=== PATIENT | male | born 1990 | race African-American/Black ===

== ENCOUNTER 2018-08-04 10:20 | Emergency (ER) | payer SELFPAY ==
[2018-08-04] MEDS ORDERED: Dexamethasone 10 MG/ML VIAL ONE (12:23)
== END 2018-08-04 12:25 | disposition home or self-care (01) ==
LOC: ERS 10:20
DX: J02.9 Acute pharyngitis, unspecified (principal)
CPT/HCPCS: 87081; 87430; 99283; J1100

== ENCOUNTER 2019-07-24 11:37 | Emergency (ER) | payer SELFPAY ==
[2019-07-24] MEDS ORDERED: Ketorolac Tromethamine 30 MG/ML VIAL ONE (11:52)
[2019-07-24] MEDS ORDERED: Dexamethasone 10 MG/ML VIAL ONE (11:52)
== END 2019-07-24 12:35 | disposition home or self-care (01) ==
LOC: ERS 11:37
DX: M77.9 Enthesopathy, unspecified (principal); F17.210 Nicotine dependence, cigarettes, uncomplicated
CPT/HCPCS: 96372; 99283; J1100; J1885

== ENCOUNTER 2019-12-11 22:50 | Emergency (ER) | payer SELFPAY ==
--- NOTE | 2019-12-11 23:34 | RAD ---
EXAM: Single view of the chest HISTORY: Shortness of breath COMPARISON: None FINDINGS: Single view of the chest shows a normal sized cardiomediastinal silhouette. There is no nena dence of consolidation, mass, or pleural effusion. The bones are unremarkable IMPRESSION: No evidence of acute cardiopulmonary disease
== END 2019-12-12 01:03 | disposition home or self-care (01) ==
LOC: ERS 22:50
DX: R07.89 Other chest pain (principal); F17.210 Nicotine dependence, cigarettes, uncomplicated
CPT/HCPCS: 71045; 93005